=== PATIENT | male | born 1985 | race Caucasian/White ===

== ENCOUNTER → 2016-11-29 | Outpatient (CLI) | payer MEDICAID ==
--- NOTE | 2016-11-30 11:46 | ECHOF ---
Referral Reason:R00.2 Heart palpitations MEASUREMENTS -------- HEIGHT: 177.8 cm WEIGHT: 95.3 kg BP: 136/62 RVIDd: 2.4 cm (< 3.3) IVSd: 1.0 cm (0.6 - 1.1) LVIDd: 5.3 cm (3.9 - 5.3) LVPWd: 1.0 cm (0.6 - 1.1) IVSs: 1.8 cm LVIDs: 2.8 cm LVPWs: 1.8 cm LAESV Index (A-L): 21.89 ml/m Ao Diam: 3.3 cm (2.0 - 3.7) AV Cusp: 2.1 cm (1.5 - 2.6) LA Diam: 3.4 cm (2.7 - 3.8) MV EXCURSION: 21.475 mm (> 18.000) MV EF SLOPE: 106 mm/s (70 - 150) EPSS: 0.4 cm MV E Ron: 0.91 m/s MV DecT: 150 ms MV A Ron: 0.86 m/s MV E/A Ratio: 1.05 RAP: 5.00 mmHg RVSP: 10.13 mmHg FINDINGS -------- Sinus rhythm. This was a technically good study. Left ventricular wall thickness is normal. Overall left ventricular systolic function is normal with, an EF between 60 - 65 %. The right ventricle is normal in size and function. Normal LA size by volume 22+/-6 ml/m2. The right atrium is normal in size. The aortic valve is trileaflet and appears structurally normal. There is no evidence of aortic regurgitation. There is no evidence of aortic stenosis. The mitral valve is normal. Trace tricuspid regurgitation present. There is no evidence of pulmonary hypertension. The right ventricular systolic pressure, as measured by Doppler, is 10.13mmHg. Trace/mild (physiologic) pulmonic regurgitation. The aortic root size is normal. There is no pericardial effusion. CONCLUSIONS -------- 1. Sinus rhythm. 2. This was a technically good study. 3. Overall left ventricular systolic function is normal with, an EF between 60 - 65 %. 4. Trace tricuspid regurgitation present. 5. There is no evidence of pulmonary hypertension. 6. The right ventricular systolic pressure, as measured by Doppler, is 10.13mmHg. 7. Trace/mild (physiologic) pulmonic regurgitation. 8. The aortic root size is normal. 9. There is no pericardial effusion. COMPONENTS ENGINEER: Adenike Berry RDCS
== END | disposition home or self-care (01) ==
LOC: RADECHMAIN 13:15
PROVIDERS: ATTEND Family Medicine
DX: I37.1 Nonrheumatic pulmonary valve insufficiency (principal); I07.1 Rheumatic tricuspid insufficiency
CPT/HCPCS: 93306

== ENCOUNTER → 2018-03-07 | Outpatient (CLI) | payer MEDICAID | END | disposition home or self-care (01) | LOC: RADUSWWP 09:35 | PROVIDERS: ATTEND Family Medicine | DX: L97.509 Non-pressure chronic ulcer of other part of unspecified foot with unspecified severity (principal) | CPT/HCPCS: 93923 ==

== ENCOUNTER 2018-12-27 00:21 | Emergency (ER) | payer MEDICAID ==
[2018-12-27] MEDS ORDERED: ONDANSETRON 4 MG/2 ML VIAL IVP STA (00:37)
[2018-12-27] MEDS ORDERED: SODIUM CHLORIDE 0.9% 1,000 ML IV STA (00:37)
[2018-12-27] MEDS ORDERED: TAMSULOSIN 0.4 MG CAP.ER.24H PO STA (00:37)
[2018-12-27] MEDS ORDERED: KETOROLAC 30 MG/ML 1 ML VIAL IVP STA (00:37)
[2018-12-27 01:02] LABS: ALT 105 U/L (21-72); AST 67 U/L (17-59); Albumin 4.8 g/dL (3.5-5.0); Alkaline Phosphatase 97 U/L (38-126); Amylase 51 U/L (30-110); Anion Gap 11 mmol/L; Blood Urea Nitrogen 16 mg/dL (9-20); Calcium 9.9 mg/dL (8.4-10.2); Carbon Dioxide 22 mmol/L (22-30); Chloride 105 mmol/L (98-107); Glucose 123 mg/dL (74-99); Lipase 157 U/L (23-300); Potassium 4.3 mmol/L (3.5-5.1); Sodium 138 mmol/L (137-145); Total Bilirubin 0.6 mg/dL (0.2-1.3); Total Protein 7.5 g/dL (6.3-8.2)
[2018-12-27 01:06] LABS: Appearance,Urine Cloudy (Clear); Bilirubin,Urine Negative (Negative); Blood,Urine Moderate (Negative); Color,Urine Yellow; Glucose,Urine (UA) Negative (Negative); Hyaline Casts,Urine 5 /lpf (0-2); Ketones,Urine Trace (Negative); Leukocyte Esterase,Urine Negative (Negative); Mucus,Urine Many /hpf; Nitrite,Urine Negative (Negative); PH, Urine 5.5 (5.0-8.0); Protein,Urine 2+ (Negative); RBC,Urine 53 /hpf (0-5)
--- NOTE | 2018-12-27 01:21 | XR ---
EXAM: XR Abdomen, 1 View CLINICAL HISTORY: ITS.REASON XR Reason: abdominal pain TECHNIQUE: Frontal supine view of the abdomen/pelvis. COMPARISON: No relevant prior studies available. FINDINGS: Gastrointestinal tract: Unremarkable. No dilation. Bones/joints: Unremarkable. IMPRESSION: Normal abdominal x-ray.
[2018-12-27 01:42] LABS: Basophils # (A) 0.1 k/uL (0-0.2); Basophils % (A) 1 %; Eosinophils # (A) 0.4 k/uL (0-0.7); Eosinophils % (A) 3 %; HCT 43.9 % (39.0-53.0); HGB 14.7 gm/dL (13.0-17.5); Lymphocytes # (A) 2.1 k/uL (1.0-4.8); Lymphocytes % (A) 17 %; MCH 28.6 pg (25.0-35.0); MCHC 33.4 g/dL (31.0-37.0); MCV 85.7 fL (80.0-100.0); Mean Platelet Volume 7.7; Monocytes # (A) 0.7 k/uL (0-1.0); Monocytes % (A) 6 %; Neutrophils # (A) 8.9 k/uL (1.3-7.7); Neutrophils % (A) 72 %; Platelet Count 272 k/uL (150-450); RBC 5.12 m/uL (4.30-5.90); RDW 13.6 % (11.5-15.5); WBC 12.3 k/uL (3.8-10.6)
[2018-12-27] MEDS ORDERED: HYDROmorphone 1 MG/ML 1 ML SYRINGE IVP STA (01:49)
--- NOTE | 2018-12-27 02:15 | ED ---
Abdominal Pain HPI - General Source: patient Limitations: no limitations <Ruthy Arcos - Last Filed: 12/27/18 02:20> <Jennifer Wharton - Last Filed: 12/27/18 02:31> - General Chief Complaint: Abdominal Pain Stated Complaint: L flank pain Time Seen by Provider: 12/27/18 00:33 - History of Present Illness Initial Comments: 33-year-old male patient presents to the emergency department today for evaluation of left flank pain. Patient states this started around 10:30 this evening. Patient states that he has had kidney stone in the past and this feels similar. Patient denies any hematuria, dysuria, urinary frequency, urinary urg ency. Patient states he has been nauseated but has not vomited. Denies any history of abdominal surgery. Denies fever or chills. Denies any constipation or diarrhea. Denies hematochezia or melena. Patient denies any recent rash, shortness breath, chest pain, numbness, tingling, dizziness, weakness, headache, visual changes, or any other complaints. (Ruthy Arcos) - Related Data Previous Rx's Medication Instructions Recorded Hydrocodone/Acetaminophen [[place] 1 tab PO Q6HR PRN #12 tab 12/27/18 5-325] Ibuprofen [Motrin] 600 mg PO Q8HR PRN #30 tab 12/27/18 Ondansetron [Zofran ODT] 4 mg PO Q8HR PRN #10 tab 12/27/18 Tamsulosin HCl [Flomax] 0.4 mg PO DAILY #7 cap 12/27/18 Allergies Allergy/AdvReac Type Severity Reaction Status Date / Time No Known Allergies Allergy Verified 12/27/18 00:26 Review of Systems ROS Other: All systems not noted in ROS Statement are negative. <Ruthy Arcos - Last Filed: 12/27/18 02:20> ROS Other: All systems not noted in ROS Statement are negative. <Jennifer Wharton - Last Filed: 12/27/18 02:31> ROS Statement: Those systems with pertinent positive or pertinent negative responses have been documented in the HPI. Past Medical History Additional Past Medical History / Comment(s): ezema, kidney stone, History of Any Multi-Drug Resistant Organisms: None Reported Additional Past Surgical History / Comment(s): vasectomy, Past Psychological History: No Psychological Hx Reported Smoking Status: Current every day smoker Past Alcohol Use History: None Reported Past Drug Use History: None Reported <Ruthy Arcos - Last Filed: 12/27/18 02:20> General Exam Limitations: no limitations General appearance: alert, in no apparent distress, other (Physical well- developed, well-nourished adult male patient in no acute distress. Vital signs upon presentation are temperature 98.3F, pulse 91, respirations 18, blood pressure 124/84, pulse ox 97% on room air.) Eye exam: Present: normal appearance, PERRL, EOMI. Absent: scleral icterus, conjunctival injection, periorbital swelling ENT exam: Present: normal exam, normal oropharynx, mucous membranes moist Respiratory exam: Present: normal lung sounds bilaterally. Absent: respiratory distress, wheezes, rales, rhonchi, stridor Cardiovascular Exam: Present: regular rate, normal rhythm, normal heart sounds. Absent: systolic murmur, diastolic murmur, rubs, gallop, clicks GI/Abdominal exam: Present: soft, normal bowel sounds. Absent: distended, te nderness, guarding, rebound, rigid Extremities exam: Present: normal inspection, full ROM, normal capillary refill. Absent: tenderness, pedal edema, joint swelling, calf tenderness Back exam: Present: normal inspection, CVA tenderness (L). Absent: CVA tenderness (R) Neurological exam: Present: alert, oriented X3, CN II-XII intact Psychiatric exam: Present: normal affect, normal mood Skin exam: Present: warm, dry, intact, normal color. Absent: rash <Ruthy Arcos - Last Filed: 12/27/18 02:20> Course Vital Signs 12/27/18 00:24 Temperature 98.3 F Pulse Rate 91 Respiratory 18 Rate Blood Pressure 124/84 O2 Sat by Pulse 97 Oximetry Medical Decision Making - Lab Data Result diagrams: 12/27/18 00:44 12/27/18 00:44 <Ruthy Arcos M - Last Filed: 12/27/18 02:20> - Lab Data Result diagrams: 12/27/18 00:44 12/27/18 00:44 <Jennifer Wharton - Last Filed: 06/06/19 02:31> - Medical Decision Making 33-year-old male patient presents the emergency department today for evaluation of left flank pain. Patient has history of kidney stone. Urinalysis did show positive red blood cells and gross hematuria. Patient is afebrile. Remainder of labs are unremarkable. Kidney function is normal. X-ray shows no evidence for calcification. Patient clinically does have kidney stone. We will treat with Flomax, pain medication, increase fluids. He is instructed to follow-up with urologist for further evaluation. He is instructed to follow-up this primary care physician for recheck in 1-2 days. Return parameters discussed in detail. He verbalizes understanding and agrees with this plan. (Ruthy Arcos) I was available for consultation in the emergency department. The history and physical exam were done by the midlevel provider. I was consulted for this patient's care. I reviewed the case with the midlevel provider and based on the ir presentation of the patient, I agree with the assessment, medical decision making and plan of care as documented. Chart was dictated using [employer] dictation software. Attempts were made to correct any dictation errors however some typographical errors may persist. (Jennifer Wharton) - Lab Data Lab Results 12/27/18 12/27/18 12/27/18 Range/Units 00:44 00:44 00:44 WBC 12.3 H (3.8-10.6) k/uL RBC 5.12 (4.30-5.90) m/uL Hgb 14.7 (13.0-17.5) gm/dL Hct 43.9 (39.0-53.0) % MCV 85.7 (80.0-100.0) fL MCH 28.6 (25.0-35.0) pg MCHC 33.4 (31.0-37.0) g/dL RDW 13.6 (11.5-15.5) % Plt Count 272 (150-450) k/uL Neutrophils % 72 % Lymphocytes % 17 % Monocytes % 6 % Eosinophils % 3 % Basophils % 1 % Neutrophils # 8.9 H (1.3-7.7) k/uL Lymphocytes # 2.1 (1.0-4.8) k/uL Monocytes # 0.7 (0-1.0) k/uL Eosinophils # 0.4 (0-0.7) k/uL Basophils # 0.1 (0-0.2) k/uL Manual Slide Review Performed Sodium 138 (137-145) mmol/L Potassium 4.3 (3.5-5.1) mmol/L Chloride 105 (98-107) mmol/L Carbon Dioxide 22 (22-30) mmol/L Anion Gap 11 mmol/L BUN 16 (9-20) mg/dL Creatinine 1.13 (0.66-1.25) mg/dL Est GFR (CKD-EPI)AfAm >90 (>60 ml/min/1.73 sqM) Est GFR (CKD-EPI)NonAf 84 (>60 ml/min/1.73 sqM) Glucose 123 H (74-99) mg/dL Calcium 9.9 (8.4-10.2) mg/dL Total Bilirubin 0.6 (0.2-1.3) mg/dL AST 67 H (17-59) U/L ALT 105 H (21-72) U/L Alkaline Phosphatase 97 (38-126) U/L Total Protein 7.5 (6.3-8.2) g/dL Albumin 4.8 (3.5-5.0) g/dL Amylase 51 (30-110) U/L Lipase 157 (23-300) U/L Urine Color Yellow Urine Appearance Cloudy (Clear) Urine pH 5.5 (5.0-8.0) Ur Specific [place] 1.040 H (1.001-1.035) Urine Protein 2+ H (Negative) Urine Glucose (UA) Negative (Negative) Urine Ketones Trace H (Negative) Urine Blood Moderate H (Negative) Urine Nitrite Negative (Negative) Urine Bilirubin Negative (Negative) Urine Urobilinogen 3.0 (<2.0) mg/dL Ur Leukocyte Esterase Negative (Negative) Urine RBC 53 H (0-5) /hpf Hyaline Casts 5 H (0-2) /lpf Urine Mucus Many H (None) /hpf Disposition Is patient prescribed a controlled substance at d/c from ED?: Yes When asked, does pt state using other controlled substances?: No If prescribed controlled substance>3 days was MAPS reviewed?: Prescribed <3 Days If opioid is for acute pain is fill amount 7 days or less?: Yes If Rx opioid, was Start Talking consent form obtained?: Yes Time of Disposition: 02:14 <Ruthy Arcos M - Last Filed: 12/27/18 02:20> <Jennifer Wharton P - Last Filed: 12/27/18 02:31> Clinical Impression: Kidney stone on left side Disposition: HOME SELF-CARE Condition: Good Instructions (If sedation given, give patient instructions): Kidney Stones (ED), How to Strain Your Urine (ED) Additional Instructions: Increase fluids. Take medications as directed. Follow-up with urologist for recheck as soon as possible. Return to the emergency department immediately for any new, worsening, or concerning symptoms. Prescriptions: Tamsulosin HCl [Flomax] 0.4 mg PO DAILY #7 cap Ibuprofen [Motrin] 600 mg PO Q8HR PRN #30 tab PRN Reason: Pain Hydrocodone/Acetaminophen [[place] 5-325] 1 tab PO Q6HR PRN #12 tab PRN Reason: Pain Ondansetron [Zofran ODT] 4 mg PO Q8HR PRN #10 tab PRN Reason: Nausea Referrals: Veronica Zamorano DO [Primary Care Provider] - 1-2 days Daniel Barnes MD [STAFF PHYSICIAN] - 1-2 days
[2018-12-27 03:05] VITALS: BP 128/83; PULSE 87; RESP 17; TEMP 98.1
== END 2018-12-27 03:05 | disposition home or self-care (01) ==
LOC: EC 00:21
DX: N20.0 Calculus of kidney (principal); F17.200 Nicotine dependence, unspecified, uncomplicated; Z98.52 Vasectomy status
CPT/HCPCS: 36415; 74018; 80053; 81001; 82150; 83690; 85025; 96361; 96374; 96375; 99284

== ENCOUNTER → 2019-01-01 | Outpatient (CLI) | payer MEDICAID ==
--- NOTE | 2019-01-01 11:31 | US ---
EXAMINATION TYPE: US abdomen limited DATE OF EXAM: 01/01/2019 COMPARISON: NONE CLINICAL HISTORY: R94.5 HIGH LFT'S. abn elevated lft's more than once, no symptoms EXAM MEASUREMENTS: Liver Length: 18.2 cm Gallbladder Wall: 0.2 cm CBD: 0.6 cm Right Kidney: 10.4 x 4.7 x 5.9 cm difficult to penetrate abd and overlying bowel gas limits exam Pancreas: limited views appear wnl Liver: Very difficult to penetrate per behavioral health director history. There is increased echogenicity of the he patic parenchyma with diminished visualization of the portal triads most commonly relating to hepatic steatosis and limiting evaluation for underlying hepatic masses. Probable focal fatty sparing seen n ear vu hepatis. Gallbladder: wnl Evidence for sonographic Quarles's sign: no CBD: wnl Right Kidney: wnl IMPRESSION: Findings most commonly related to hepatic steatosis appearing moderate in degree with pro bable focal fatty sparing around the vu hepatis in a typical location for focal fatty sparing.
== END | disposition home or self-care (01) ==
LOC: RADUSWWP 10:16
PROVIDERS: ATTEND Family Medicine
DX: R94.5 Abnormal results of liver function studies (principal)
CPT/HCPCS: 76705

== ENCOUNTER → 2019-04-16 | Outpatient (CLI) | payer MEDICAID ==
--- NOTE | 2019-04-16 21:29 | CONS ---
CONSULTATION REASON FOR CONSULTATION: Sleep apnea. 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 This has been raised by the knowing that the patient was noted to be snoring very loudly. No witnessed apneas. Currently, the patient working 24 hour shift 7:00 am to 7:00 am 3 days a week. On days off, he stays up and he goes to bed around 9-10 p.m. he gets up at 8:00 in the morning. He is tired and sleepy and carries an [place] score of 16. He is able to function well. He does not fall asleep while driving. No reported episodes where he wakes up choking or gasping for air. No restlessness in lower extremities. He is a mouth breather at night time and he wakes up with dry mouth. His weight was up significantly as the patient was taking steroids for a dermatologic problem which was eczema like lesion for which he was placed on high dose of prednisone and ultimately the skin lesion improved with addition of the Dupixent, a novelle treatment for this type of skin lesions. Currently he is off steroids. As the patient came off the steroids, the patient maintained his weight which is currently down to 226 pounds. No history of any motor vehicle accident because of feeling drowsy or sleepy. No history of any falling asleep behind the wheel because of feeling drowsy or sleepy. PAST MEDICAL HISTORY: 1. Chronic dermatitis. 2. Obesity. PAST SURGICAL HISTORY: Vasectomy. DRUG ALLERGIES: Not known. MEDICATIONS: He used to be on Dupixent, currently none. He is also currently off steroids also. SOCIAL HISTORY: He is a positive smoker. No history of alcohol. No history of IV drugs. FAMILY HISTORY: Father has obstructive sleep apnea. REVIEW OF SYSTEMS: Fourteen-point review of system was done. Positive findings are mentioned in history of present illness. The patient sleeps on his side. He drinks 2-3 cups of coffee in the morning. He does not watch TV in his bedroom. His weight has been fluctuating essentially up due to the previous steroid intake. No sleep paralysis. No hallucinations or cataplexy. No anxiety. No depression. No panic. No palpitation. No heartburn. No sleepwalking or sleep talking. No other unusual behavior at nighttime during sleep. PHYSICAL EXAMINATION: His current vitals: BP is 145/73, pulse 96, respirations 16, temperature 98.5, saturation 96% on room air. Height is 5 feet 10 inches, weight is 226 and BMI 32.8. Neck size 16.5 inches. General appearance: Calm, comfortable. Head is atraumatic, normocephalic. NECK: Supple. There is no JVD. No goiter. No neck masses. Mallampati class IV. LUNGS: Clear to auscultation. HEART: Sounds regular rate and rhythm. Normal S1, S2. No S3. No murmurs. ABDOMEN: Soft, nontender. No organomegaly. EXTREMITIES: No edema. No cyanosis or clubbing. Neurologically, he is awake and alert. There are no focal neurological deficits. PSYCHIATRIC: Negative for anxiety or depression. IMPRESSION: 1. Chronic hypersomnia currently under investigation. [place] score is at 16, rule out obstructive sleep apnea. 2. Loud snoring. 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 4. Chronic eczematous skin rash, recovered. 5. History of steroid intake with significant weight gain in the order of 50 pounds and current BMI 32.8. PLAN: 1. Encourage weight loss. 2. Implement good sleep hygiene measures. 3. Based on his reported history of snoring and ongoing hypersomnia, we will proceed with a screening polysomnogram to rule out the possibility of obstructive sleep apnea and treat accordingly. 4. Implement good sleep hygiene measures. 5. All of these things were discussed with the patient and further recommendations are to follow based on the results of the sleep study. MMODL / IJN: [id number] /
== END ==
LOC: SLEEP 16:38
PROVIDERS: ATTEND Internal Medicine Critical Care Medicine
DX: R06.83 Snoring (principal); L30.9 Dermatitis, unspecified; R63.5 Abnormal weight gain; Z68.32 Body mass index [BMI] 32.0-32.9, adult; Z87.891 Personal history of nicotine dependence; Z79.899 Other long term (current) drug therapy
CPT/HCPCS: 99211

== ENCOUNTER → 2019-09-24 | Outpatient (CLI) | payer MEDICAID ==
--- NOTE | 2019-09-24 21:35 | PN ---
PROGRESS NOTE Andrew is 34, diagnosed having obstructive sleep apnea. The disease is mild in severity with an AHI of 14. Nevertheless, the patient was quite somnolent and sleepy and he was having a high [place] score of 16. 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 Based on that, we decided to treat this patient. He had titration and he was titrated to a CPAP pressure of 10 cm of water. On today's evaluation, the patient is coming in for a compliancy check. He is feeling better. He feels more refreshed. He wants to continue with the treatment knowing that he has significant amount of clinical response. On the compliance data, the patient has been averaging around 7.7 hours of CPAP use per night and CPAP use for more than 4 hours per night is 29/30 with a leak of 4 L per minute, and his AHI is down to 1.3. He is using a large size simple fullface mask. No other new complaints. He is also contemplating purchasing another CPAP machine as the patient travels a lot and he wants to carry 1 with him at all times. REVIEW OF SYSTEMS: Constitutional is negative for any recent weight gain or weight loss. No fever, chills, or night sweats. No angina. No palpitation. No heartburn. No chest pain. No swelling lower extremities. No history of any motor vehicle accident because of feeling drowsy or sleepy. He is able to concentrate well along with good attention span and memory and no irritability or anxiety or depression point in time. PHYSICAL EXAMINATION: VITAL SIGNS: BP is 133/79, pulse 79, respirations 16. [place] score is down to 4. Temperature 98.2, weight is 221. GENERAL: Calm, comfortable. Head is atraumatic, normocephalic. NECK: Supple. No JVD. Supple neck masses. Mallampati class IV. LUNGS: Clear to auscultation. HEART: Heart sounds are regular rate and rhythm. Normal S1, S2. No murmurs. ABDOMEN: Soft, nontender. No organomegaly. EXTREMITIES: No edema. No cyanosis or clubbing. NEUROLOGIC: He is awake, alert, there are no focal neurological deficits. PSYCHIATRIC: Negative for anxiety or depression for the time being. IMPRESSION: Mild obstructive sleep apnea with adequate clinical response with a CPAP pressure of 10 cm of water. The patient is doing well with the current regimen. PLAN: The patient is improved. Sleepiness improved. Continue CPAP therapy at same level of pressure of 10 cm of water and keep the same mask interface which is a large size Simplus full-face mask, which has demonstrated minimum amount of leak which is in order of 4 L. Encourage weight loss. The patient's original body weight has been around 190 pounds. I am confident that with weight loss he will be able to improve and we may even consider taking him off the CPAP if he is able to achieve his original body weight. We will continue to follow. I will see him back in a year's time. He may end up which using another CPAP unit at a later stage. MMNLELYL / IJN: [id number] /
== END | disposition home or self-care (01) ==
LOC: SLEEP 15:59
PROVIDERS: ATTEND Internal Medicine Critical Care Medicine
DX: G47.33 Obstructive sleep apnea (adult) (pediatric) (principal)

== ENCOUNTER → 2020-11-17 | Outpatient (CLI) | payer MEDICAID ==
--- NOTE | 2020-11-17 14:16 | PN ---
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 He has a case of mild TALIA with an AHI of 14. He remains on a CPAP at a pressure of 10 cm of water. He is using a Simplus full-face mask. Doing extremely well. He is waking up refreshed and alert during the day. No hypersomnia or sleepiness during the day. His weight has been stable over the past one year. Based on the compliance data that was all done on his machine, the patient has been achieving approximately 7.8 hours of CPAP use per night and his leak is in order of 7 L/minute and his AHI is down to 1.2. CPAP use for more than 4 hours is approximately 70%. No other complaints for now. REVIEW OF SYSTEMS: Fourteen-point review of system was done. Positive findings are mentioned in history of present illness. No major hypersomnia or sleepiness. He is working 10 shifts a month and on days off he sleeps well and rested. PHYSICAL EXAMINATION: VITAL SIGNS: BP is 132/80, pulse 95, respirations 16, temperature 98.6, saturation 95% on room air. Height is 5 feet 10 inches. Weight is 225 and BMI 32.2. An [place] score of 15. GENERAL APPEARANCE: Calm, comfortable. HEAD: Atraumatic, normocephalic. NECK: Supple. No JVD. No goiter or neck mass. Mallampati class 4. LUNGS: Clear to auscultation. HEART: Heart sounds are regular rate and rhythm. Normal S1, S2. No S3, S4. No murmurs. ABDOMEN: Soft, nontender. No organomegaly. EXTREMITIES: No edema. No cyanosis or clubbing. IMPRESSION: 1. Obstructive sleep apnea, AHI of 14, mild disease adequately treated with CPAP at a pressure of 10 cm. 2. Hypersomnia, improved. 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 The patient is doing 10 shifts a month. PLAN: 1. Weight is stable. 2. Adequate sleep hygiene measures. 3. Keep CPAP therapy same level of pressure. 4. Keep Simplus full-face mask. 5. See me back in a few years time in followup earlier if needed. Treatment is successful for now. MMODL / IJN: [id number] /
== END ==
LOC: SLEEP 10:59
PROVIDERS: ATTEND Internal Medicine Critical Care Medicine
DX: G47.33 Obstructive sleep apnea (adult) (pediatric) (principal)

== ENCOUNTER → 2021-11-23 | Outpatient (CLI) | payer MEDICAID ==
--- NOTE | 2021-11-23 13:49 | P.PN ---
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 The patient is currently doing only morning shifts and as his rank went up, he is not doing any nightshifts anymore. He is known to have obstructive sleep apnea. He has an AHI of 14 and the patient has been maintained on a CPAP pressure of 10 cm of water. The patient is coming in for routine check. His last evaluation in the office was on 11/17/2020. On today's evaluation, his weight has remained stable at 222 pounds. No new complaints. Sleep quality is good. The patient is utilizing his machine every night. I checked her compliance data on his machine and I noted that the patient has utilize his machine every night over the past 30 nights without any interruptions. He is achieved more than 4 hours on the percent of the time. His been averaging around 8.4 hours of CPAP use per night and the leak is in order of 4 L per minute and AHI is down to 0.8. No major hypersomnia and sleepiness during the day. Sleep quality is good. Nocturnal chest pain or shortness of breath. No heartburn. no restlessness in lower ext remities. no sleep fragmentation. wakes up refreshed and alert during the day. no other cardiovascular complications for now. as mentioned, the weight has remained stable. he is using his simplus fullface mask. Objective - Exam BP is 135/75, pulse of 81, respiration of 14, temperature 97.5, saturation is 97% on room air oxygen, weight is 222 and the patient's [place] score is at 10 The patient appeared well nourished and normally developed. Vital signs as documented. Head exam is unremarkable. No scleral icterus or corneal arcus noted . Neck is without jugular venous distension, thyromegaly, or carotid bruits. Carotid upstrokes are brisk bilaterally. Lungs are clear to auscultation and percussion. Cardiac exam reveals the PMI to be normally sized and situated. Rhythm is regular. First and second heart sounds normal. No murmurs, rubs or gallops. Abdominal exam reveals normal bowel sounds, no masses, no organomegaly and no aortic enlargement. Extremities are nonedematous and both femoral and pedal pulses are normal.Examination of the skin revealed no evidence of significant rashes, suspicious appearing nevi or other concerning lesions.Neurologically, the patient is awake and alert and the patient does not have any focal neurological deficit. Cranial nerves are essentially intact. Assessment and Plan Plan: 1 symptomatic obstructive sleep apnea, AHI of 14 at baseline and the patient is receiving CPAP therapy at a pressure of 10 cm of water. Treatment is successful for now. The patient is asymptomatic and has been adequately treated. His machine is functional. 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 2 history of hypersomnia, improved with CPAP therapy. 3 ALLERGIC eczema/urticaria, improved with the use of the Dupixent. Plan Continue CPAP therapy the same level a pressure of 10 cm of water Keep the patient on a Simplus fullface mask Encourage weight loss Refill supplies Machine was checked Compliance was checked No need for adjustments We'll continue to follow
== END ==
LOC: SLEEP 12:54
PROVIDERS: ATTEND Internal Medicine Critical Care Medicine
DX: G47.33 Obstructive sleep apnea (adult) (pediatric) (principal); Z99.89 Dependence on other enabling machines and devices; F17.200 Nicotine dependence, unspecified, uncomplicated

== ENCOUNTER → 2024-10-09 | Outpatient (CLI) | payer BC ==
--- NOTE | 2024-10-09 14:30 | NM ---
EXAMINATION TYPE: NM hepatobiliary w CCK DATE OF EXAM: 10/09/2024 2:19 PM COMPARISON: Ultrasound most recent 01/01/2019. CLINICAL INDICATION:Male, 39 years old with history of R10.11 RIGHT UPPER QUADRANT PAIN; TECHNIQUE: The patient was given 5.02 mCi of Technetium 99m-Mebrofenin as a radiotracer and multiple scintigraphic images were obtained of the abdomen. Gallbladder function was also assessed after the administration of 2.27 mcg of Kinevac (cholecystokinin) and additional scintigraphic images were obta ined of the abdomen. A region of interest was drawn over the gallbladder and a timing activity curve was generated. The gallbladder ejection fraction was calculated. Kinevac: 2.27 mcg FINDINGS: Normal uptake of radiotracer was identified within the liver with excretion into the hepatic and comm on biliary ducts within 4 min. There was normal progressive washout of the liver over the course of t he study. Radiotracer uptake within the gallbladder at 6 minutes as well as small bowel activity was identified at 4 minutes. Maximum calculated gallbladder ejection fraction is: 67% at 30 minutes (Normal gallbladder ejection fraction is > 35%) IMPRESSION: 1. Normal hepatobiliary scan. 2. Normal ejection fraction. [facility], , 10/09/2024 2:27 PM
== END | disposition home or self-care (01) ==
LOC: RADNMMAIN 06:19
PROVIDERS: ATTEND Surgery
DX: R10.11 Right upper quadrant pain (principal)
CPT/HCPCS: 78227; A9537